=== PATIENT | female | born 1990 | race Caucasian/White ===

== ENCOUNTER 2022-08-27 10:22 | Emergency (ER) | payer OTHER, SELFPAY ==
--- NOTE | ~2022-08-27 | MR_ITS ---
EXAMINATION: MR abdomen wo con DATE: 08/27/2022 14:46 INDICATION: Right lower quadrant abdominal pain. Nausea and vomiting. TECHNIQUE: Magnetic resonance imaging (MRI) of the abdomen was performed without intravenous contrast . COMPARISON: None. FINDINGS: The gallbladder is normal. The common duct is normal in caliber. The kidneys are normal. There are no dilated loops of bowel. The appendix is normal. There are no pathologically enlarged lymph nodes. Th ere is physiologic fluid in the peritoneum. The ovaries are normal. There is a single intrauterine ge station in breech presentation. The placenta is anterior and on the right. There is a small subchorio cira hematoma. IMPRESSION: 1. Normal appendix. 2. Small subchorionic hematoma. Reviewed, dictated and finalized at location A. [employer]
[2022-08-27 10:30] VITALS: BP 167/87; PULSE 92; RESP 18; TEMP 36.7; O2SAT 99
--- NOTE | 2022-08-27 10:33 | ECG_ITS ---
Measurements Intervals [place] Rate: 81 P: 46 GA: 183 QRS: 45 QRSD: 71 T: 48 QT: 343 QTc: 398 Interpretive Statements SINUS RHYTHM COMPARED TO ECG 10/01/2018 09:13:56 NO SIGNIFICANT CHANGES Electronically Signed On 08-27-2022 14:54:03 [employer] SUPER[employer] by Puma Willard M.D.
[2022-08-27 10:52] LABS: Basophils Percent Auto 0.3 % (0.2-1.2); Eosinophils Absolute Auto 0.1 K/mm3 (0-0.3); Eosinophils Percent Auto 0.6 % (0-4.4); Hematocrit 38.7 % (37.0-47.0); Hemoglobin 13.2 g/dL (12.0-15.0); Immature Granulocyte Absolute 0.08 K/mm3 (0.00-0.031); Immature Granulocyte Percent A 0.6 % (0-0.5); Lymphocytes Absolute Auto 2.54 K/mm3 (0.9-3.2); Lymphocytes Percent Auto 19.7 % (18.3-44.2); Mean Corpuscular HGB Conc 34.1 g/dl (32-36); Mean Corpuscular Hemoglobin 31.7 pg (26-34); Mean Corpuscular Volume 92.8 fl (80-100); Monocytes Absolute Auto 0.7 K/mm3 (0.1-0.6); Monocytes Percent Auto 5.2 % (2.6-8.5); Neutrophils Absolute Auto 9.5 K/mm3 (1.3-6.7); Neutrophils Percent Auto 73.6 % (45.5-73.1); Platelet Count Result 234 k/mm3 (150-375); Red Blood Count 4.17 M/mm3 (4.2-5.4); Red Cell Distribution Width 13.3 % (11.5-14.5); White Blood Count 12.9 K/mm3 (4.5-10.0)
[2022-08-27 11:21] LABS: Alanine Aminotransferase 18 U/L (6-35); Albumin Level 4.3 g/dL (3.5-5.1); Alkaline Phosphatase 55 U/L (38-126); Anion Gap 4 mmol/L (8-16); Aspartate Amino Transferase 22 U/L (14-36); Bilirubin,Total 0.6 mg/dL (0.2-1.3); Blood Urea Nitrogen 9 mg/dL (7-17); Calcium 8.6 mg/dL (8.4-10.2); Carbon Dioxide 25 mmol/L (22-30); Chloride 101 mmol/L (98-107); Estimated CRCL calculation 130 ml/min; Estimated Glomerular Filt Rate > 60; Glucose 102 mg/dL (65-110); Potassium 3.8 mmol/L (3.4-5.0); Sodium 130 mmol/L (137-145)
[2022-08-27 11:32] VITALS: BP 132/92; PULSE 88
[2022-08-27 11:33] VITALS: BP 130/79; BP 134/88; PULSE 106; PULSE 96
[2022-08-27] MEDS: ACETAMINOPHEN 500 MG TABLET 1000 MG PO (11:38)
[2022-08-27 11:52] LABS: Appearance Urine Clear (Clear); Bilirubin Urine Negative (Negative); Blood Urine Negative (Negative); Color Urine Yellow (Yellow); Glucose Urine UA Negative (Negative); Ketones Urine Negative (Negative); Leukocyte Esterase Ur Negative LEU/UL (Negative); Nitrate Urine Negative (Negative); Protein Urine Negative (Negative); Urobilinogen Urine 0.2 mg/dL (<2.0)
[2022-08-27 12:03] LABS: Add Urine Microscopic? NO
[2022-08-27] MEDS: LACTATED RINGERS 1,000 ML 999 ML IV CONT (12:14)
--- NOTE | 2022-08-27 12:45 | ED.DIZZY ---
HPI - Dizziness General Chief Complaint: Dizziness Stated Complaint: dizzy, sob, back pain, 14 weeks preg Time Seen by Provider: 08/27/22 11:13 History of Present Illness HPI Narrative: 32yoF at 14wk p/w several days of n/v and R flank pain radiating into abdomen, also feeling like she would pass out when she sits up/stands, difficulty keeping things down. Already taken zofran at home. Some burning pain worse when urinating. Had some light spotting 2 weeks ago. Confirmed IUP. Related Data Home Medications Medication Instructions Recorded Confirmed hydroxyzine HCl 50 mg tablet 50 mg PO QID PRN 10/24/21 07/24/22 metformin 500 mg tablet 500 mg PO BID 07/24/22 07/24/22 levothyroxine 100 mcg capsule 100 mcg PO DAILY 08/07/22 Allergies Allergy/AdvReac Type Severity Reaction Status Date / Time metoclopramide [From Reglan] Allergy Severe parkinson Verified 08/07/22 14:02 Review of Systems Review of Systems: CONST: No fever. HEENT: No sore throat C/V: No chest pain RESP: No cough GI: Reports abdominal pain, nausea, vomiting : No dysuria. M/S: No joint pain. SKIN: No rash. NEURO: Some lightheadedness with standing PSYCH: [No depression] PMFSH Past Medical History Medical History Anxiety Bipolar 1 disorder Toyin's thyroiditis Hyperlipidemia Hypertension Suppression of menses Surgical History Surgical History H/O dilation and curettage H/O laparoscopy History of hysteroscopy History of tonsillectomy Family History Family History Mother Diabetes mellitus Grandparent Diabetes mellitus Carcinoma of colon Father Heart disease Hypertension Social History Social History Smoking status: Current every day smoker Alcohol intake: never Substance use type: marijuana Lack of Transportation: YES Lack of Food: Never True Current Housing: I Have Housing Concerned About Future Housing: No Difficulty Paying Gas/Electric Bills: Decline to Answer Difficulty Paying for Meds: No Currently Unemployed: No Education: High School Diploma/GED Difficulty w/ Childcare or Family Care: No Exam Narrative: EXAMINATION OF ORGAN SYSTEMS/BODY AREAS: Constitutional: Vital signs per nursing GENERAL:[No acute distress, non-toxic appearing.] HEAD: Normal with no signs of head trauma. EYES: EOMI, conjunctiva normal ENT: Hearing grossly intact LUNGS: Nonlabored breathing. HEART: [Regular rate and rhythm] ABD: [Soft], [tender to palpation] right lower quadrant EXT: Normal range of motion SKIN: [No rashes or lesions.] NEURO: [Alert and oriented x 3. No gross focal sensory or strength deficits.] PSYCH: Normal affect Course Vital Signs Vital signs: Vital Signs Temperature 98.0 F 08/27/22 10:30 Pulse Rate 92 08/27/22 10:30 Respiratory Rate 18 08/27/22 10:30 Blood Pressure 167/87 H 08/27/22 10:30 Pulse Oximetry 99 08/27/22 10:30 Oxygen Delivery Room Air 08/27/22 10:30 Temperature 98.0 F 08/27/22 10:30 Pulse Rate 106 H 08/27/22 11:33 Respiratory Rate 18 08/27/22 10:30 Blood Pressure 130/79 08/27/22 11:33 Pulse Oximetry 99 08/27/22 10:30 Oxygen Delivery Room Air 08/27/22 10:30 MDM - Dizziness MDM Narrative Medical decision making narrative: Electronic medical record was reviewed. Patient presented to the ED with complaint of [abdominal pain and vomiting]. Vitals [were within acceptable limits]. Physical exam revealed [tenderness to palpation in right lower quadrant]. Based on the patient's history and physical exam, my differential includes but is not limited to [gastritis, gastroenteritis, cholecystitis, UTI, stone, appendicitis]. [IV access was established by nursing staff. Patient was given zofran, IV fluids]. CBC, BMP, lipase, LFTs, bilirub
== END 2022-08-27 15:38 | disposition home or self-care (01) ==
PROVIDERS: Emergency Provider Emergency Medicine; PCP Student in an Organized Health Care Education/Training Program
DX: O46.8X2 Other antepartum hemorrhage, second trimester (principal); O26.892 Other specified pregnancy related conditions, second trimester; R11.0 Nausea; R42 Dizziness and giddiness; O99.282 Endocrine, nutritional and metabolic diseases complicating pregnancy, second trimester; E06.3 Autoimmune thyroiditis; E78.5 Hyperlipidemia, unspecified; O99.332 Smoking (tobacco) complicating pregnancy, second trimester; O16.2 Unspecified maternal hypertension, second trimester; F17.200 Nicotine dependence, unspecified, uncomplicated; Z3A.14 14 weeks gestation of pregnancy; Z79.84 Long term (current) use of oral hypoglycemic drugs
CPT/HCPCS: 36415; 74181; 80053; 81003; 81025; 85025; 93005; 96360; 99283; A9270; J7120

== ENCOUNTER 2022-12-03 17:12 | Outpatient (CLI) | payer OTHER, SELFPAY ==
[2022-12-03 17:46] VITALS: BP 132/82; PULSE 91
[2022-12-03 18:01] VITALS: BP 123/78; PULSE 94
[2022-12-03 18:09] LABS: Basophils Percent Auto 0.3 % (0.2-1.2); Eosinophils Absolute Auto 0.1 K/mm3 (0-0.3); Eosinophils Percent Auto 0.6 % (0-4.4); Hematocrit 37.5 % (37.0-47.0); Hemoglobin 12.7 g/dL (12.0-15.0); Immature Granulocyte Absolute 0.07 K/mm3 (0.00-0.031); Immature Granulocyte Percent A 0.5 % (0-0.5); Lymphocytes Absolute Auto 2.93 K/mm3 (0.9-3.2); Mean Corpuscular HGB Conc 33.9 g/dl (32-36); Mean Corpuscular Hemoglobin 32.9 pg (26-34); Mean Corpuscular Volume 97.2 fl (80-100); Mean Platelet Volume 10.7 fl (7.4-10.4); Monocytes Absolute Auto 1.1 K/mm3 (0.1-0.6); Monocytes Percent Auto 7.6 % (2.6-8.5); Neutrophils Absolute Auto 10.4 K/mm3 (1.3-6.7); Platelet Count Result 225 k/mm3 (150-375); Red Blood Count 3.86 M/mm3 (4.2-5.4); Red Cell Distribution Width 13.1 % (11.5-14.5); White Blood Count 14.7 K/mm3 (4.5-10.0)
[2022-12-03 18:14] LABS: Creatinine Urine 57.4 mg/dL; Total Protein Urine Random 11 mg/dL; Ur Ttl Prot Creatinine Ratio 0.19 mg/mg (0-0.20)
[2022-12-03 18:16] VITALS: BP 127/84; PULSE 101
[2022-12-03 18:18] LABS: Appearance Urine Cloudy (Clear); Bacteria Urine 1+ /hpf; Bilirubin Urine Negative (Negative); Blood Urine Negative (Negative); Color Urine Yellow (Yellow); Glucose Urine UA Negative (Negative); Ketones Urine Negative (Negative); Leukocyte Esterase Ur 2+ LEU/UL (NEGATIVE); Nitrate Urine Negative (Negative); Non Pathogenic Casts 0-2; Protein Urine Negative (Negative); RBC Urine 0-2 /hpf (0-2); Specific Grav Ur 1.009 (1.001-1.035); Squamous Epithelial Cell Urine Many /hpf (Few); Urobilinogen Urine 0.2 mg/dL (<2.0); pH Urine 7.5 (5.0-9.0)
[2022-12-03 18:21] LABS: Alanine Aminotransferase 14 U/L (6-35); Albumin Level 3.6 g/dL (3.5-5.1); Alkaline Phosphatase 68 U/L (38-126); Anion Gap 6 mmol/L (8-16); Aspartate Amino Transferase 16 U/L (14-36); Bilirubin,Total 0.3 mg/dL (0.2-1.3); Blood Urea Nitrogen 9 mg/dL (7-17); Calcium 8.5 mg/dL (8.4-10.2); Carbon Dioxide 24 mmol/L (22-30); Chloride 105 mmol/L (98-107); Estimated Glomerular Filt Rate > 60; Glucose 82 mg/dL (65-110); Potassium 3.8 mmol/L (3.4-5.0); Sodium 135 mmol/L (137-145); Uric Acid 3.3 mg/dL (2.5-7.5)
[2022-12-03 18:26] VITALS: BMI 43.1
--- NOTE | 2022-12-03 18:26 | OBADM ---
This patient, Kavya De La Cruz, admitted to the OB room Labor/Delivery/Recovery 119 for PIH labs Patient/family oriented to hospital policies and general routines including ID bracelet, bed and alarms, visiting hours, pain management, procedures, bathroom and other care routines, personal items, smoking policy, room service/diet, and visiting hours. Patient/Family are encouraged to report perceived risks to care and to ask questions if they do not understand what they are told or what they should do.
[2022-12-03 18:31] VITALS: BP 136/82; PULSE 96
[2022-12-03 18:36] LABS: Add Urine Microscopic? YES
[2022-12-03 18:46] VITALS: BP 133/88; PULSE 97
--- NOTE | 2022-12-03 18:59 | PC.NURSE ---
Placed call to Dr. Nolasco, discussed and maternal status as well as lab results and latest blood pressures. MD advised that patient could be discharged and to keep next scheduled appointment.
== END 2022-12-03 19:06 | disposition home or self-care (01) ==
LOC: ANHOBOP 17:18 → ANHLDR 17:19
PROVIDERS: Visit Provider Obstetrics & Gynecology
DX: O13.9 Gestational [pregnancy-induced] hypertension without significant proteinuria, unspecified trimester (principal); Z3A.00 Weeks of gestation of pregnancy not specified
CPT/HCPCS: 36415; 80053; 81001; 82570; 84156; 84550; 85025; 87086; 87088; 99199

== ENCOUNTER 2023-01-22 11:35 | Observation (INO) | payer OTHER, SELFPAY ==
[2023-01-22 11:56] VITALS: BP 123/84; PULSE 77
[2023-01-22 12:01] VITALS: BP 120/88; PULSE 81
[2023-01-22 12:16] VITALS: BP 128/80; PULSE 80
[2023-01-22 12:31] VITALS: BP 128/79; PULSE 83
[2023-01-22 12:46] VITALS: BP 130/88; PULSE 84
[2023-01-22 12:52] LABS: Appearance Urine Clear (Clear); Bacteria Urine None Seen /hpf; Bilirubin Urine Negative (Negative); Blood Urine Negative (Negative); Color Urine Yellow (Yellow); Glucose Urine UA Negative (Negative); Ketones Urine Negative (Negative); Leukocyte Esterase Ur Trace LEU/UL (Negative); Nitrate Urine Negative (Negative); Non Pathogenic Casts 0-2; Protein Urine Negative (Negative); RBC Urine 0-2 /hpf (0-2); Specific Grav Ur 1.017 (1.001-1.035); Squamous Epithelial Cell Urine Few /hpf (Few); Urobilinogen Urine 0.2 mg/dL (<2.0); WBC Urine 0-5 /hpf
[2023-01-22 12:54] LABS: Add Urine Microscopic? YES
[2023-01-22 13:34] VITALS: BMI 42.3
--- NOTE | 2023-01-22 13:34 | OBADM ---
This patient, Kavya De La Cruz, admitted to the OB room OB Post 117 for observation. Patient/family oriented to hospital policies and general routines including ID bracelet, bed and alarms, visiting hours, pain management, procedures, bathroom and other care routines, personal items, smoking policy, room service/diet, and visiting hours. Patient/Family are encouraged to report perceived risks to care and to ask questions if they do not understand what they are told or what they should do.
--- NOTE | 2023-01-23 16:46 | P.PNOB_ITS ---
OB - Triage/Final Diagnosis Visit Information Comments/Additional reasons for admission: I have assessed the risk for this patient, Kavya De La Cruz, and determined that she would benefit from observation care. Evaluation Laboratory results: Laboratory Tests 01/22/23 12:41 Urine Color Yellow Urine Appearance Clear Urine pH 7.0 Ur Specific [place] 1.017 Urine Protein Negative Urine Glucose (UA) Negative Urine Ketones Negative Ur Blood (Man) Negative Urine Nitrate Negative Urine Bilirubin Negative Urine Urobilinogen 0.2 Leukocyte Esterase Rfl Trace H Urine RBC 0-2 Urine WBC 0-5 Ur Squamous Epith Cells Few Urine Bacteria None seen Urine Casts 0-2 Final Diagnosis (1) Pelvic pressure in : Code(s): O26.899 - Other specified related conditions, unspecified trimester; R10.2 - Pelvic and perineal pain Status: Acute
== END 2023-01-22 13:54 | disposition home or self-care (01) ==
LOC: ANHOBOP 12:48 → ANHOBPP 13:45
PROVIDERS: Admitting Provider Obstetrics & Gynecology; Visit Provider Obstetrics & Gynecology
DX: O26.899 Other specified pregnancy related conditions, unspecified trimester (principal); R10.2 Pelvic and perineal pain; Z3A.00 Weeks of gestation of pregnancy not specified
CPT/HCPCS: 81001; G0378; G0379

== ENCOUNTER 2023-01-31 11:52 | Outpatient (RCR) | payer OTHER, SELFPAY ==
[2023-01-01 17:02] VITALS: BP 133/78; PULSE 86
[2023-01-08 19:02] VITALS: BP 133/86; PULSE 89
[2023-01-15 16:55] VITALS: BP 124/78; PULSE 85
[2023-01-28 17:55] LABS: Basophils Percent Auto 0.2 % (0.2-1.2); Eosinophils Absolute Auto 0.1 K/mm3 (0-0.3); Eosinophils Percent Auto 0.6 % (0-4.4); Hematocrit 39.1 % (37.0-47.0); Hemoglobin 13.5 g/dL (12.0-15.0); Immature Granulocyte Absolute 0.03 K/mm3 (0.00-0.031); Immature Granulocyte Percent A 0.2 % (0-0.5); Lymphocytes Absolute Auto 3.36 K/mm3 (0.9-3.2); Lymphocytes Percent Auto 26.5 % (18.3-44.2); Mean Corpuscular HGB Conc 34.5 g/dl (32-36); Mean Corpuscular Hemoglobin 33.5 pg (26-34); Mean Platelet Volume 10.6 fl (7.4-10.4); Monocytes Absolute Auto 0.9 K/mm3 (0.1-0.6); Monocytes Percent Auto 7.2 % (2.6-8.5); Neutrophils Absolute Auto 8.3 K/mm3 (1.3-6.7); Neutrophils Percent Auto 65.3 % (45.5-73.1); Platelet Count Result 191 k/mm3 (150-375); Red Blood Count 4.03 M/mm3 (4.2-5.4); White Blood Count 12.7 K/mm3 (4.5-10.0)
[2023-01-28 18:02] LABS: Appearance Urine Cloudy (Clear); Bacteria Urine 3+ /hpf; Bilirubin Urine Negative (Negative); Blood Urine Negative (Negative); Color Urine Yellow (Yellow); Glucose Urine UA Negative (Negative); Ketones Urine Negative (Negative); Leukocyte Esterase Ur 1+ LEU/UL (NEGATIVE); Nitrate Urine Negative (Negative); Non Pathogenic Casts 0-2; Protein Urine 1+ mg/dL (Negative); RBC Urine 0-2 /hpf (0-2); Specific Grav Ur 1.026 (1.001-1.035); Squamous Epithelial Cell Urine Many /hpf (Few); WBC Urine 21-50 /hpf (0-3); pH Urine 6.5 (5.0-9.0)
[2023-01-28 18:05] LABS: Alanine Aminotransferase 13 U/L (6-35); Albumin Level 3.6 g/dL (3.5-5.1); Alkaline Phosphatase 101 U/L (38-126); Anion Gap 3 mmol/L (8-16); Aspartate Amino Transferase 18 U/L (14-36); Bilirubin,Total 0.2 mg/dL (0.2-1.3); Blood Urea Nitrogen 15 mg/dL (7-17); Calcium 8.5 mg/dL (8.4-10.2); Carbon Dioxide 21 mmol/L (22-30); Chloride 107 mmol/L (98-107); Estimated Glomerular Filt Rate > 60; Glucose 88 mg/dL (65-110); Sodium 131 mmol/L (137-145); Uric Acid 4.1 mg/dL (2.5-7.5)
[2023-01-28 18:07] LABS: Add Urine Microscopic? YES
[2023-01-28 18:30] LABS: Creatinine Urine 194.7 mg/dL; Total Protein Urine Random 22 mg/dL; Ur Ttl Prot Creatinine Ratio 0.11 mg/mg (0-0.20)
--- NOTE | 2023-01-28 18:47 | PC.NURSE ---
Dr. Nolasco called to inquire about patient and spoke to ALEXANDREA Kuhn. She reported NST of no acceleration in last half hour but had some previously. Orders to d/c patient after blood work comes back if it is all ok and have her schedule an NST and BPP Friday morning.
--- NOTE | 2023-01-28 19:05 | PC.NURSE ---
Called Gaurav about patients urine results. Orders to send for culture and d/c patient
--- NOTE | ~2023-01-31 | US_ITS ---
EXAMINATION: US OB BPP wo non-stress DATE: 01/15/2023 17:38 INDICATION: Gestational diabetes TECHNIQUE: Real-time ultrasound of the pelvis was performed. COMPARISON: None. FINDINGS: There is a single living fetus in vertex presentation, longitudinal lie. The placenta is anterior. F etal heart rate is 148 beats per minute (bpm). The amniotic fluid index is 12.8 cm, which is normal ( 5th to 95th percentile is 8.1 to 24.8 cm). The cervix is not well visualized, obscured by the h ead. Biophysical profile performed by the technologist: breathing (30 sec sustained breathing in 30 minutes): 2 out of 2 movement (3 gross body movements in 30 minutes: 2 out of 2 tone (one episode of jkfuuzt-jhxpqlkud-ueyoeec limb movement): 2 out of 2 Amniotic fluid pocket (2 cm): 2 out of 2 Total score: 8 out of 8 IMPRESSION: 1. Single living fetus in vertex presentation. 2. Normal ROXI of 12.8 cm. 3. Biophysical profile 8 out of 8. Reviewed, dictated and finalized at location K.
--- NOTE | ~2023-01-31 | US_ITS ---
EXAMINATION: US OB BPP wo non-stress DATE: 01/01/2023 18:16 CDT INDICATION: Gestational diabetes TECHNIQUE: Real-time transabdominal obstetric ultrasound. FINDINGS: There is a single living fetus in vertex presentation. The placenta is anterior without placenta pre via. cardiac activity and movement is noted with a heart rate of 148 beats per minute. Biophysical profile: breathin of 2 movement: 2 of 2 tone: 2 of 2 Amniotic flud pocket: 2 of 2 Total score: 2 of 8 IMPRESSION: 1. Single living intrauterine in vertex presentation. 2: Total biophysical profile score of 8/8. Reviewed, dictated and finalized at location L.
--- NOTE | ~2023-01-31 | US_ITS ---
EXAMINATION: US OB BPP wo non-stress DATE: 01/31/2023 13:47 INDICATION: Gestational diabetes, third trimester TECHNIQUE: Real-time pelvic ultrasound was performed. The interpreting radiologist was not present fo r the study. COMPARISON: 01/15/2023 FINDINGS: There is a single living fetus in vertex presentation. The placenta is anterior. heart rate is 155 beats per minute (bpm). Biophysical profile performed by the technologist: breathing (30 sec sustained breathing in 30 minutes): 2 out of 2 movement (3 gross body movements in 30 minutes): 2 out of 2 tone (one episode of aoohgxy-xmbdjfjqy-eqparrf limb movement): 2 out of 2 Amniotic fluid pocket (2 cm): 2 out of 2 Total score: 8 out of 8 IMPRESSION: 1. Single living fetus in vertex presentation. 2. Biophysical profile 8 out of 8. Reviewed, dictated and finalized at location B.
--- NOTE | ~2023-01-31 | US_ITS ---
EXAMINATION: US OB BPP wo non-stress DATE: 01/08/2023 18:37 INDICATION: Gestational diabetes and hypertension TECHNIQUE: Real-time ultrasound of the pelvis was performed. COMPARISON: 3 FINDINGS: There is a single living fetus in vertex presentation. The cervix is partially obscured but appears t o be long and closed. The placenta is anterior. heart rate is 144 beats per minute (bpm). The a mniotic fluid index is 10.6 cm, which is normal (14th percentile). Biophysical profile performed by the technologist: breathing (30 sec sustained breathing in 30 minutes): 2 out of 2 movement (3 gross body movements in 30 minutes: 2 out of 2 tone (one episode of afixtwr-stcdibpmm-msyeyij limb movement): 2 out of 2 Amniotic fluid pocket (2 cm): 2 out of 2 Total score: 8 out of 8 IMPRESSION: 1. Single living fetus in vertex presentation. 2. Anterior placenta. 3. Biophysical profile 8 out of 8. 4. ROXI 10.6 cm, representing the 14th percentile. Reviewed, dictated and finalized at location K.
[2023-01-31 13:49] VITALS: BP 130/85; PULSE 87
== END 2023-03-03 12:42 | disposition home or self-care (01) ==
LOC: ANHOBOP 11:52
PROVIDERS: Visit Provider Obstetrics & Gynecology
DX: O24.419 Gestational diabetes mellitus in pregnancy, unspecified control (principal); Z3A.31 31 weeks gestation of pregnancy
CPT/HCPCS: 36415; 59025; 76819; 80053; 81001; 82570; 84156; 84550; 85025; 87086

== ENCOUNTER 2023-02-06 05:43 | Inpatient (IN) | payer OTHER, SELFPAY ==
[2023-02-06] VITALS (136 sets, daily range): BP systolic 98–200; BP diastolic 59–120; PULSE 59–156; RESP 20; TEMP 36.6–37; O2SAT 94–100; BMI 42.3
--- NOTE | 2023-02-06 06:29 | WPDANESEPP ---
Anes - Eval Pre Procedure Procedure: labor epidural Date/Time: 02/06/23 06:29 Surgeon: felipe Preop Diagnosis: pain during labor Pre Op Diagnosis: Induction of Labor Patient Data Age: 32 Gender: F Height: Weight: Last Vital Signs Pulse 90 02/06/23 06:24 BP 151/102 H 02/06/23 06:24 Allergies Allergy/AdvReac Type Severity Reaction Status Date / Time insulin detemir Allergy Severe Rash Verified 02/04/23 16:58 [From Levemir U-100 Insulin] metoclopramide [From Reglan] Allergy Severe parkinson Verified 02/04/23 16:58 Home Medications Medication Instructions Recorded Confirmed Type prenat.vits,patti,biu-siel-khdpy 1 tablet PO DAILY #90 tabs 08/12/22 02/04/23 Rx levothyroxine 100 mcg tablet 100 mcg PO DAILY 11/04/22 02/04/23 History ondansetron 4 mg disintegrating 4 mg PO Q6H PRN nausea and 12/24/22 02/04/23 Rx tablet vomiting #30 tabs omeprazole 40 mg capsule,delayed 40 mg PO DAILY 01/08/23 02/04/23 History release insulin glargine 100 unit/mL 10 unit subcut QAM 01/15/23 02/04/23 History subcutaneous solution (Lantus U-100 Insulin) insulin glargine 100 unit/mL 28 unit subcut QPM 01/15/23 02/04/23 History subcutaneous solution (Lantus U-100 Insulin) cephalexin 750 mg capsule 750 mg PO Q8H #30 caps 02/04/23 02/04/23 Rx Patient hx anesthesia problems: none Family hx anesthesia problems: none Results Review: All pre-operative results and documents have been reviewed as part of the pre-operative evaluation. [facility] Past Medical History Medical History Anxiety Bipolar 1 disorder Toyin's thyroiditis Hyperlipidemia Hypertension Nausea & vomiting Suppression of menses Surgical History Surgical History H/O dilation and curettage H/O laparoscopy History of hysteroscopy History of tonsillectomy Family History Family History Mother Diabetes mellitus Grandparent Diabetes mellitus Carcinoma of colon Father Heart disease Hypertension Social History Social History Smoking status: Current every day smoker Alcohol intake: never Substance use: current Substance use type: marijuana Other substance usage details: 1-2 times a day Lack of Transportation: YES Lack of Food: Never True Current Housing: I Have Housing Concerned About Future Housing: No Difficulty Paying Gas/Electric Bills: No Difficulty Paying for Meds: No Currently Unemployed: No Education: High School Diploma/GED Difficulty w/ Childcare or Family Care: No Living arrangements: other Additional living arrangements comments: Occupation/Education: unemployed Gender identity (if verbalized by the patient): Female Sexual Orientation (if Verbalized by the Patient): Straight or Heterosexual Exam Day of Procedure 02/06/23 06:29
[2023-02-06 06:46] LABS: Basophils Absolute Auto 0.1 K/mm3 (0.0-0.1); Basophils Percent Auto 0.4 % (0.2-1.2); Eosinophils Absolute Auto 0.1 K/mm3 (0-0.3); Eosinophils Percent Auto 0.5 % (0-4.4); Hematocrit 40.2 % (37.0-47.0); Hemoglobin 13.9 g/dL (12.0-15.0); Immature Granulocyte Absolute 0.07 K/mm3 (0.00-0.031); Immature Granulocyte Percent A 0.5 % (0-0.5); Lymphocytes Absolute Auto 2.61 K/mm3 (0.9-3.2); Lymphocytes Percent Auto 19.4 % (18.3-44.2); Mean Corpuscular HGB Conc 34.6 g/dl (32-36); Mean Corpuscular Hemoglobin 33.7 pg (26-34); Mean Corpuscular Volume 97.3 fl (80-100); Mean Platelet Volume 10.9 fl (7.4-10.4); Monocytes Absolute Auto 0.9 K/mm3 (0.1-0.6); Monocytes Percent Auto 6.3 % (2.6-8.5); Neutrophils Absolute Auto 9.8 K/mm3 (1.3-6.7); Neutrophils Percent Auto 72.9 % (45.5-73.1); Platelet Count Result 195 k/mm3 (150-375); Red Blood Count 4.13 M/mm3 (4.2-5.4); Red Cell Distribution Width 13.1 % (11.5-14.5); White Blood Count 13.5 K/mm3 (4.5-10.0)
[2023-02-06] MEDS: LACTATED RINGERS 1,000 ML 125 ML IV CONT ×2 (06:55→09:37)
[2023-02-06] MEDS: AMPICILLIN 2 GM/NS 100 ML 2 GM/100 ML BAG IVPB (06:56)
[2023-02-06] MEDS: OXYTOCIN 30 UNITS/NS 500 ML 30 UNITS/500 ML BAG IV CONT (06:56)
[2023-02-06 07:34] LABS: Glucose Point of Care 75 mg/dl (65-105)
[2023-02-06 07:38] LABS: HIV 1/2 Ab P24 Ag Result Negative (Negative)
[2023-02-06 07:48] LABS: Alanine Aminotransferase 12 U/L (6-35); Albumin Level 3.4 g/dL (3.5-5.1); Alkaline Phosphatase 105 U/L (38-126); Anion Gap 8 mmol/L (8-16); Aspartate Amino Transferase 17 U/L (14-36); Bilirubin,Total 0.3 mg/dL (0.2-1.3); Blood Urea Nitrogen 11 mg/dL (7-17); Calcium 8.7 mg/dL (8.4-10.2); Carbon Dioxide 21 mmol/L (22-30); Chloride 105 mmol/L (98-107); Estimated CRCL calculation 112 ml/min; Estimated Glomerular Filt Rate > 60; Glucose 82 mg/dL (65-110); Potassium 3.8 mmol/L (3.4-5.0); Sodium 134 mmol/L (137-145); Uric Acid 4.4 mg/dL (2.5-7.5)
[2023-02-06 09:44] LABS: Glucose Point of Care 79 mg/dl (65-105)
[2023-02-06 10:54] LABS: Rapid Plasma Reagin Non-Reactive (NonReactive)
[2023-02-06] MEDS: AMPICILLIN 1 GM/NS 50 ML 1 GM/50 ML BAG IVPB ×2 (11:02→15:10)
[2023-02-06 13:28] LABS: Glucose Point of Care 88 mg/dl (65-105)
[2023-02-06] MEDS: ONDANSETRON INJ 4 MG/2 ML VIAL IV PUSH (14:22)
[2023-02-06] MEDS: ACETAMINOPHEN 500 MG TABLET 1000 MG PO (14:58)
[2023-02-06] MEDS: NIFEdipine 30 MG TAB.ER.24 PO (14:59)
--- NOTE | 2023-02-06 16:15 | P.PCNOB_ITS ---
OB - Delivery Note Procedure Events: Gestational Diabetes and Gestational Hypertension Intrapartal Events: Other Induction method: Per Pitocin Protocol Delivery augmentation: Rupture of Membranes Delivery monitor: External FHT and External Uterine Route of delivery: Episiotomy description: None Laceration Description: None Specimen: Yes Quantitative Blood Loss (ml): 500 Anesthesia type: Epidural Disposition: Floor Complications: None Narrative: patient prepped draped usual manner for this procedure. maternal expulsive efforts readily delivered vertex over intact perineum, wrist baby delivered without difficulty. Cord clamped cut and placenta delivered spontaneously as well. Cervix vagina vulva were inspected with no lacerations or tears. Uterus well contracted and not bleeding. At this point the procedure was considered terminated with immediate postoperative condition of mother and baby both excellent. [place] Baby Weeks of gestation at delivery: 37 Infant gender: Male Weight (pounds): 5 Weight (ounces): 10 presentation: vertex Placenta delivery description: Spontaneous Cord Vessel Description: 3 Vessels score one minute: 8 score five minutes: 9 AMG Delivery Billing Delivery Delivery: Delivery Charge
--- NOTE | 2023-02-06 16:15 | WPDHPUPDATE1 ---
History and Physical Update Update Date/Time: 02/06/23 16:15 History and Physical has been reviewed, including an updated exam of the patient. There are NO changes in the patient's condition. Risks, benefits, and alternatives have been discussed and questions answered. Patient agrees to proceed with procedure.
--- NOTE | 2023-02-06 16:15 | WPDOBADMIT ---
Obstetrics - Admit Note Admission Note: record reviewed. No pertinent additions to the history and/or any subsequent changes in the physical findings that are not consistent with the expected course of the were found. Additions to the history and/or subsequent changes in the physical findings follow. None.
[2023-02-06] MEDS: OXYTOCIN 30 UNITS/NS 500 ML 30 UNITS/500 ML BAG 125 UNITS IV CONT (16:34)
--- NOTE | 2023-02-06 19:20 | PC.NURSE ---
Patient transferred to post room #290 per wheelchair from labor and delivery. Support person present. Oriented to unit, room, information board, rooming in, admission packet and security measures. Patient verbalizes understanding.
[2023-02-06] MEDS: NICOTINE (*PBKC) 14 MG PATCH 1 PATCH TRANSDERM (20:41)
[2023-02-06] MEDS: CEPHALEXIN 500 MG CAPSULE PO (23:41)
[2023-02-06] MEDS: IBUPROFEN 600 MG TABLET PO (23:42)
[2023-02-06] MEDS: ACETAMINOPHEN 325 MG TABLET 650 MG PO (23:42)
[2023-02-06] MEDS: CEPHALEXIN 250 MG CAPSULE PO (23:42)
[2023-02-07 01:00] VITALS: BP 148/90; PULSE 81; RESP 20; TEMP 36.7
[2023-02-07 08:20] VITALS: BP 153/101; PULSE 79; RESP 18; TEMP 36.7; O2SAT 97
[2023-02-07] MEDS: LEVOTHYROXINE SODIUM 100 MCG TABLET PO (08:20)
[2023-02-07] MEDS: IBUPROFEN 600 MG TABLET PO (08:20)
[2023-02-07] MEDS: CEPHALEXIN 250 MG CAPSULE PO ×2 (08:20→15:19)
[2023-02-07] MEDS: NIFEdipine 30 MG TAB.ER.24 PO (08:20)
[2023-02-07] MEDS: PANTOPRAZOLE 40 MG TABLET PO (08:20)
[2023-02-07] MEDS: CEPHALEXIN 500 MG CAPSULE PO ×2 (08:20→15:19)
[2023-02-07 08:43] LABS: Hematocrit 37.4 % (37.0-47.0); Hemoglobin 12.7 g/dL (12.0-15.0)
--- NOTE | 2023-02-07 08:43 | PM.OBDSVD ---
DS: Admitting Diagnosis Discharge Date 02/07/23 Admitting Diagnosis intrauterine at term gestational diabetes chronic hypertension DS: Discharge Diagnosis Discharge Diagnosis (1) Supervision of high risk , unspecified, third trimester: Code(s): O09.93 - Supervision of high risk , unspecified, third trimester Status: Acute (2) Chronic hypertension affecting : Code(s): O10.919 - Unspecified pre-existing hypertension complicating , unspecified trimester Status: Acute (3) Gestational diabetes: Code(s): O24.419 - Gestational diabetes mellitus in , unspecified control Status: Acute OB - DS: Summary OB Procedures : None OB Procedures Intrapartum: Spontaneous Vag Delivery OB Procedures: : None Status at Discharge Functional status at discharge: independent ambulation Overall status at discharge: patient is back to baseline Time Spent with Patient Time attestation: Total time spent providing and/or coordinating discharge services: Time spent: Less than 30 minutes Exam Const: General: comfortable and no acute distress Resp: Effort & Inspection: normal respiratory effort Auscultation: clear to auscultation bilaterally Cardio: Rate: regular rate GI: GI Palp: Yes Soft to palpation Auscultation: normal bowel sounds Other: Fundus firm below umbilicus Psych: Appearance: grossly normal Mental Status: mental status grossly normal Affect: normal affect DS: Data Data Completed and Pending Pending studies at discharge: Pending at discharge 02/06/23 16:21 Surgical [PTH] Routine Labs on day of discharge: Labs from last 24 hours 02/07/23 02/06/23 02/06/23 05:00 13:10 09:35 Hgb Pending Hct Pending POC Capillary Glucose 88 79 RPR 02/06/23 06:40 Hgb Hct POC Capillary Glucose RPR Non-reactive Discharge Plan Discharge Discharging Clinician: Prabhakar Giraldo Patient Disposition: Home, Self-Care Activity: as tolerated and pelvic rest Diet: regular Patient Instructions: Antibiotic Form, Vaginal Delivery (DC) Stand Alone Forms: General Discharge Information Follow-up/Referrals: Sage Nolasco MD [Physician] - 1 Week (blood pressure check) Discharge Medications: New ibuprofen 600 mg tablet 600 mg PO Q6H PRN (Reason: pain) Qty: 30 0RF acetaminophen 500 mg tablet 500 mg PO Q6H PRN (Reason: pain) Qty: 30 0RF Continued ondansetron 4 mg tablet,disintegrating 4 mg PO Q6H PRN (Reason: nausea and vomiting) Qty: 30 2RF levothyroxine 100 mcg tablet 100 mcg PO DAILY cephalexin 750 mg capsule 750 mg PO Q8H Qty: 30 0RF omeprazole 40 mg Capsule,Delayed Release(Dr/Ec) 40 mg PO DAILY prenat.vits,patti,kuq-kqrw-rpbww Tablet 1 tablet PO DAILY Qty: 90 3RF Discontinued insulin glargine [Lantus U-100 Insulin] 100 unit/mL Solution 4 unit SUBCUT QAM insulin glargine [Lantus U-100 Insulin] 100 unit/mL Solution 26 unit SUBCUT QPM Date of admission: 02/06/23 05:43 Primary Care Provider: PHYSICIAN,RN PLASTICS Admitting Provider: Sage Nolasco Attending physician on admission: Sage Nolasco Condition: Stable
[2023-02-07 11:25] VITALS: BP 159/99; PULSE 71; RESP 18; TEMP 36.6; O2SAT 97
[2023-02-07] MEDS: NICOTINE (*PBKC) 14 MG PATCH 1 PATCH TRANSDERM (11:40)
[2023-02-07] MEDS: TETANUS,DIPHTHERIA,AC PERTUSSIS ADULT (0.5 ML) BOOSTRIX IM (11:41)
--- NOTE | 2023-02-07 14:26 | WPDANLDPN2 ---
Anes-Prog Note L&D Date/Time: 02/07/23 14:26 Neuro status: Neuro function grossly intact. Vital Signs: Last Vital Signs Temp 36.6 C 02/07/23 11:25 Pulse 71 02/07/23 11:25 Resp 18 02/07/23 11:25 BP 159/99 H 02/07/23 11:25 Pulse Ox 97 02/07/23 11:25 O2 Del Method Room Air 02/06/23 07:24 Pain score (VAS): 0 I/O: Intake & Output 02/06/23 02/07/23 02/07/23 23:59 07:59 15:59 Intake Total 500 Output Total 500 Balance 0 Patient feedback: Patient satisfied with anesthetic care.
[2023-02-07] MEDS: ACETAMINOPHEN 325 MG TABLET 650 MG PO (17:52)
[2023-02-10 11:25] VITALS: BP 117/76; PULSE 80; RESP 18; TEMP 37.1; O2SAT 100
== END 2023-02-07 18:18 | disposition home or self-care (01) | DRG 560 ==
LOC: ANHOB2 02-07 17:31 → ANHLDR 02-10 11:07 → ANHOB2 02-10 11:07
PROVIDERS: Admitting Provider Obstetrics & Gynecology; Visit Provider Student in an Organized Health Care Education/Training Program
DX: O24.429 Gestational diabetes mellitus in childbirth, unspecified control (principal); O10.92 Unspecified pre-existing hypertension complicating childbirth; Z3A.37 37 weeks gestation of pregnancy; Z37.0 Single live birth
CPT/HCPCS: 36415; 80053; 82948; 84550; 85014; 85018; 85025; 86592; 86703; 86850; 86900; 86901; 88307; 90715; A9270; G0432; J0290; J2405; J2590; J2795; J7120

== ENCOUNTER 2023-02-12 04:34 | Day surgery (SDC) | payer OTHER, SELFPAY ==
[2023-02-12] VITALS (13 sets, daily range): BP systolic 99–137; BP diastolic 62–87; PULSE 83–120; RESP 16–25; TEMP 36.4–37; O2SAT 92–100; BMI 38.4
--- NOTE | 2023-02-12 07:59 | SUR.PREOP ---
Report to the Outpatient Waiting Room, entrance under the green pavilion located off [facility], at time 1200 on date 02/12/23. Planned Procedure Time: 1400. Time changes happen often and if your time is changed the preop area will call you the afternoon before. - You and your visitor will be asked to self-screen and do not enter if you have any COVID symptoms. - A mask is optional within the hospital at this time. Patients may have clear liquids (water, carbonated beverages, clear teas, apple juice) until 3 hours prior to surgery with a maximum of 20 ounces. - No food from midnight until time of surgery - Infants may have breast milk until 4 hours before surgery, infant formula 6 hours prior to surgery. - Children will be allowed to drink immediately following surgery. If applicable, please bring a bottle or sippy cup to assist with drinking. Juice, water, soda, and popsicles are readily available. For infants on formula, please bring formula the day of surgery. Pacifiers are allowed. Take the following medications with a SIP of water the morning of surgery: levothyroxine, nifedipine, bactrim DO NOT STOP ANY OF YOUR OTHER PRESCRIPTION MEDICATIONS PRIOR TO SURGERY ?EXCEPT THE FOLLOWING Medications to discontinue per physician n/a Date to take last dose n/a Please no make-up, nail portuguese, hairspray, perfume, deodorant, or body powder the day of surgery. No jewelry (including any body piercings) or valuables the day of surgery, leave them at home. Please take a shower or bath the night before, or the morning of, surgery with an antibacterial soap. Wear comfortable, loose fitting clothing. Children are encouraged to wear pajamas. - Jewelry must be removed prior to entering the operating room. Rings and piercings that are not removed may be cut off. - The hospital will not accept responsibility for valuables. - Please leave all valuables, including medications, at home the day of surgery. If you are going home after surgery, a licensed hazardous materials driver must drive you home. - NO public transportation without another adult if you receive anesthesia. - We recommend that an adult stay with you for 24 hours following discharge. - We also recommend that you do not drive, make important decision, drink alcoholic beverages, or take any drugs that were not prescribed by your health care provider for at least 24 hours after your discharge time. For Pediatric surgeries, we recommend two adults accompany the child home. Follow any additional instructions given to you from your surgeon. If you or anyone in your household have experienced Covid symptoms in the past week, please notify your surgeon or the nurse liaison at the phone number below for possible testing. Telephone instructions given to christel dowd and asked if any additional questions and then verbalized understanding. Patient advised to call surgeon office or pre surgery nurse liaison [phone] if any additional questions.
--- NOTE | 2023-02-12 12:30 | WPDHPUPDATE1 ---
History and Physical Update Update Date/Time: 02/12/23 12:30 History and Physical has been reviewed, including an updated exam of the patient. There are NO changes in the patient's condition. Risks, benefits, and alternatives have been discussed and questions answered. Patient agrees to proceed with procedure.
--- NOTE | 2023-02-12 12:31 | WPDHPUPDATE1 ---
History and Physical Update Update Date/Time: 02/12/23 12:31 History and Physical has been reviewed, including an updated exam of the patient. There are NO changes in the patient's condition. Risks, benefits, and alternatives have been discussed and questions answered. Patient agrees to proceed with procedure.
--- NOTE | 2023-02-12 12:32 | WPDHPUPDATE1 ---
History and Physical Update Update Date/Time: 02/12/23 12:32 History and Physical has been reviewed, including an updated exam of the patient. There are NO changes in the patient's condition. Risks, benefits, and alternatives have been discussed and questions answered. Patient agrees to proceed with procedure.
--- NOTE | 2023-02-12 12:47 | WPDANESEPPF ---
Anes - Initial Pre Proc Eval Procedure: Operation Date: 02/12/23 14:00 Proposed Procedures p Incision and Drainage of Right Breast Abscess - Robbie Saunders DO Date/Time: 02/12/23 12:47 Surgeon: Robbie Saunders DO Pre Op Diagnosis: right breast abscess Patient Data Age: 32 Gender: F Height: 1.59 m Weight: 97.52 kg Allergies Allergy/AdvReac Type Severity Reaction Status Date / Time insulin detemir Allergy Severe Rash Verified 02/11/23 15:08 [From Levemir U-100 Insulin] metoclopramide [From Reglan] Allergy Severe parkinson Verified 02/11/23 15:08 Home Medications Medication Instructions Recorded Confirmed Type levothyroxine 100 mcg tablet 100 mcg PO DAILY 11/04/22 02/12/23 History acetaminophen 500 mg tablet 500 mg PO Q6H PRN pain #30 tabs 02/07/23 02/12/23 Rx ibuprofen 600 mg tablet 600 mg PO Q6H PRN pain #30 tabs 02/07/23 02/12/23 Rx nifedipine 60 mg tablet,extended 60 mg PO DAILY #30 tabs 02/08/23 02/12/23 Rx release sulfamethoxazole 800 1 tablet PO Q12H 5 days #10 tabs 02/08/23 02/12/23 Rx mg-trimethoprim 160 mg tablet (Bactrim DS) Patient hx anesthesia problems: none Family hx anesthesia problems: none Results Review: All pre-operative results and documents have been reviewed as part of the pre-operative evaluation. [facility] Past Medical History Medical History (Updated 02/11/23 @ 16:04 by Khloe Bhagat) Anxiety Asthma Bipolar 1 disorder Depression Toyin's thyroiditis Hyperlipidemia Hypertension Nausea & vomiting Suppression of menses Thyroid disease Surgical History Surgical History H/O dilation and curettage H/O laparoscopy History of hysteroscopy History of tonsillectomy Family History Family History (Updated 02/11/23 @ 15:08 by Khloe Barroso) Mother Diabetes mellitus Grandparent Diabetes mellitus Carcinoma of colon Father Heart disease Hypertension Unknown Heart disease Diabetes mellitus Cerebrovascular accident Hypertension Cancer Kidney disease Social History Social History Smoking packs per day: 0.5 Smoking cigarettes per day: 10.0 Years smoked: 19 Smoking pack-years: 9.50 Smoking status: Current every day smoker Tobacco type: cigarettes Second hand tobacco smoke exposure: No Alcohol intake: never Substance use: current Substance use type: marijuana Other substance usage details: 1-2 times a day Lack of Transportation: No Lack of Food: Never True Current Housing: I Have Housing Concerned About Future Housing: No Difficulty Paying Gas/Electric Bills: No Difficulty Paying for Meds: No Currently Unemployed: No Education: High School Diploma/GED Difficulty w/ Childcare or Family Care: No Living arrangements: with family Additional living arrangements comments: Occupation/Education: unemployed Gender identity (if verbalized by the patient): Female Sexual Orientation (if Verbalized by the Patient): Straight or Heterosexual Spiritual care concerns: No Anes - Eval Final PreProcedure Day of Procedure 02/12/23 12:47 Patient weight: obese Heart: regular rate and rhythm Lungs: clear to auscultation Airway: Mallampati scale class II Neurological: alert and oriented Last oral intake: >/= 8 hours ASA classification: III Emergent: no Anesthetic plan: proceed Anesthesia type and monitoring: general ETT and standard monitoring Results Review: All pre-operative results and documents have been reviewed as part of the pre-operative evaluation. Informed Consent: The patient's anesthetic plan and its attendant risks and benefits were discussed with the patient/family/POA. Questions were solicited and answers provided to the satisfaction of the patient/family/POA.
--- NOTE | 2023-02-12 13:30 | SUR.PREOP ---
pt is 6 days , therefore dr leigh said no urine test necessary.
[2023-02-12] MEDS: LACTATED RINGERS 1,000 ML 30 ML IV CONT ×2 (13:48→14:35)
[2023-02-12] MEDS: ceFAZolin 2 GM/D5W 50 ML 2 GM/50 ML BAG IVPB (13:51)
[2023-02-12] MEDS: BUPivacaine HCL 0.5% 10 ML AMP 30 ML INFILTRATE (14:27)
--- NOTE | 2023-02-12 15:02 | P.OP_ITS ---
Procedure Note - Detailed Date of Procedure 02/12/23 Pre-op Diagnosis right breast abscess Post-op Diagnosis Same Procedure Performed Incision, drainage, and debridement of right subareolar breast abscess Surgeon Kevin Adrian MD Anesthesia General Indications Patient is a 32-year-old female who is 6 days . Several days before she deliver started developing redness and pain in the right breast in the periareolar area at approximately the 2 to 3 o'clock position. She has gone on to develop a breast abscess with some necrosis of the overlying skin in this area. She presents now for excision of necrotic tissue as well as incision and drainage of the abscess. Findings The abscess extended into the subareolar area with multiple loculations. Faster toward the tissue in the subareolar area was viable. More laterally at the periareolar area there was a 3x2cm area of nonviable skin which was resected. Description of Procedure After informed consent was obtained patient brought to the operating room she was placed supine position and then general endotracheal anesthesia was administered. The right breast was then prepped and draped usual sterile fashion. A scalpel was then used to incise the right breast abscess over the most fluctuant portion in the mid part of the necrotic tissue. Once I entered the abscess cavity approximately 10 to 15 cc of creamy purulent fluid was aspi rated. I then obtained a deep abscess culture and this was sent to microbiology for aerobic, anaerobic, and Gram stain. I then explored the abscess cavity with my index finger and it extended to the subareolar area and down to about 3 to 4 cm deep from the nipple. I then resected debrided sharply with scalpel and scissor dissection necrotic skin over the abscess cavity. There was minimal necrotic breast tissue. I then proceeded to irrigate out the wound with sterile saline solution. Hemostasis was then achieved utilizing electrocautery. The wound was then packed utilizing 1/2inch iodoform gauze. Approximately 5ft of gauze was used for packing. I then injected 1% lidocaine mixed with 0.5% Marcaine around the wound for local anesthetic effect. I then cleaned the area then covered with 4x4 gauze an ABD pad and Medipore tape. A surgical bowel was also placed. The patient tolerated the procedure well no complications. All sponges, needles, and instrument counts were correct at the end procedure. EBL was _ 10 __cc. The patient was awakened and taken to recovery in stable and satisfactory condition. Implants None Estimated Blood Loss 10 Drains No Packing Yes (1/2inch iodoform gauze in right breast abscess cavity) Pathology Other (Culture sent for aerobic, anaerobic, and Gram stain) Complications No immediate complications Condition Stable Disposition PACU [facility] Billing Surgery - Charge Forward: Surgery Billing
[2023-02-12] MEDS: fentaNYL CITRATE INJ (*CRX) 100 MCG/2 ML VIAL 25 MCG IV PUSH ×2 (15:05→15:09)
[2023-02-12] MEDS: MIDAZOLAM HCL (*CRX) 2 MG/2 ML VIAL IV PUSH (15:13)
[2023-02-12] MEDS: ONDANSETRON INJ 4 MG/2 ML VIAL IV PUSH (15:41)
== END 2023-02-12 17:15 | disposition home or self-care (01) ==
PROVIDERS: Visit Provider Surgery
DX: N61.1 Abscess of the breast and nipple (principal); E06.3 Autoimmune thyroiditis; I10 Essential (primary) hypertension; F17.210 Nicotine dependence, cigarettes, uncomplicated; F12.90 Cannabis use, unspecified, uncomplicated; E66.9 Obesity, unspecified; Z68.38 Body mass index [BMI] 38.0-38.9, adult
CPT/HCPCS: 19020; 87070; 87075; 87076; 87077; 87185; 87205; J0330; J0690; J1100; J1170; J2250; J2405; J2704; J3010; J7120